=== PATIENT | female | born 1940 | race Caucasian/White ===

== ENCOUNTER 2019-05-31 10:34 | Outpatient (CLI) | payer MEDICARE, MEDICAID, SELFPAY ==
--- NOTE | ~2019-05-31 | DEXA_ITS ---
BMD(1) Young-Adult(2) Age-Matched(3) Region (g/cm2) T-score Z-score WHO Classification L1 0.883 -2.1 -1.5 Osteopenia L2 0.949 -2.2 -1.5 Osteopenia L3 0.947 -2.2 -1.5 Osteopenia L4 0.995 -1.7 -1.1 Osteopenia L1-L4 0.949 -2.0 -1.3 Osteopenia Trend: L1-L4 Change vs Change vs Measured Age BMD(1) Baseline Previous Date ([age]) (g/cm2) (%) (%) 05/31/2019 [age] 0[age]949 baseline - 1 - Statistically 68% of repeat scans fall within 1SD (+- 0.010 g/cm2 for AP Spine L1-L4) 2 - [place] (Combined NHANES (ages 20-30) / [employer] (ages 20-40)) AP Spine Reference Population (v112) 3 - Matched for Age, Weight (females 25-100 kg), Ethnic 11 - World Health Organization - Definition of Osteoporosis and Osteopenia for Women: Normal = T-score at or above -1.0 SD; Osteopenia = T-score between -1.0 and -2.5 SD; Osteoporosis = T-score at or below -2.5 SD; (WHO definitions only apply when a young healthy Women reference database is used to determine T-scores.) Printed: 05/31/2019 11:34:49 AM (13.60)76:3.00:22.22:27.0 0.00:11.46 0.60x1.05 26.8:%Fat=51.3% 0.00:0.00 0.00:0.00 Filename: [id number] Scan Mode: Thick;OneScan 83.0 [employer] [id number] BMD(1) Young-Adult(2) Age-Matched(3) Region (g/cm2) T-score Z-score WHO Classification Neck 0.652 -2.8 -1.4 Osteoporosis Total 0.675 -2.6 -1.6 Osteoporosis Hip [place] Side Length Comparison (mm) (Right = 108.7 mm) (Mean = 106.2 mm) Trend: Total Change vs Change vs Measured Age BMD(1) Baseline Previous Date (years) (g/cm2) (%) (%) 05/31/2019 78.6 0.675 baseline - 1 - Statistically 68% of repeat scans fall within 1SD (+- 0.012 g/cm2 for Right Femur Total) 2 - [place] (Combined NHANES (ages 20-30) / [employer] (ages 20-40)) Femur Reference Population (v112) 3 - Matched for Age, Weight (females 25-100 kg), Ethnic 11 - World Health Organization - Definition of Osteoporosis and Osteopenia for Women: Normal = T-score at or above -1.0 SD; Osteopenia = T-score between -1.0 and -2.5 SD; Osteoporosis = T-score at or below -2.5 SD; (WHO definitions only apply when a young healthy Women reference database is used to determine T-scores.) Printed: 05/31/2019 11:34:49 AM (13.60)76:3.00:50.00:12.0 0.00:15.84 0.60x1.05 21.5:%Fat=48.2% 0.00:0.00 0.00:0.00 Neck Angle (deg)= 60 Filename: [id number] Scan Mode: Standard 37.0 [employer] [id number] Dear Antonio Soriano, Dilan patient Celine Yip completed a BMD test on 05/31/2019 using the [employer] DXA System (analysis version: 13.60) manufactured by [employer]. The following summarizes the results of our evaluation. PATIENT BIOGRAPHICAL: Name: Celine Yip Date: 1940 Height: 64.0 in. Gender: Female Exam Date: 05/31/2019 Weight: 223.0 lbs. Indications: Caffeinated drinks, , Height Loss, History of Fracture (Adult), Hysterectomy, Menopause Fractures: Hip, Pelvis, Wrist Treatments: Calcium, Multivitamin, Omeprazole, Vitamin D ASSESSMENT: The BMD measured at Femur Neck is 0.652 g/cm2 with a T-score of -2.8. This patient is considered osteoporotic according to World Health Organization (WHO) criteria. F
[2019-05-31 10:52] LABS: Basophils Absolute Auto 0.03 K/mm3 (0.00-0.10); Basophils Percent Auto 0.7 % (0.0-1.0); Eosinophils Percent Auto 2.5 % (1.0-6.0); Immature Granulocyte Absolute 0.01 K/mm3 (0.00-0.00); Immature Granulocyte Percent A 0.2 % (0.0-0.0); Lymphocytes Absolute Auto 0.81 K/mm3 (1.10-4.50); Lymphocytes Percent Auto 19.9 % (18.0-42.0); Mean Corpuscular HGB Conc 31.3 g/dL (32.0-36.0); Mean Corpuscular Hemoglobin 32.5 pg (27.0-31.0); Mean Corpuscular Volume 103.9 fL (78.0-102.0); Monocytes Absolute Auto 0.38 K/mm3 (0.10-0.90); Monocytes Percent Auto 9.3 % (2.0-11.0); Neutrophils Absolute Auto 2.7 K/mm3 (1.7-7.2); Neutrophils Percent Auto 67.4 % (50.0-70.0); Platelet Count Result 161 K/mm3 (150-420); Red Blood Count 3.08 M/mm3 (4.20-5.40); Red Cell Distribution Width 14.1 % (11.6-14.4); White Blood Count 4.1 K/mm3 (4.8-10.8)
[2019-05-31 12:02] LABS: Alanine Aminotransferase 16 U/L (14-59); Albumin Level 3.3 g/dL (3.4-5.0); Alkaline Phosphatase 134 U/L (46-116); Anion Gap 16.1 mmol/L (7-16); Aspartate Amino Transferase 14 U/L (15-37); Bilirubin,Total 0.3 mg/dL (0.00-1.00); Blood Urea Nitrogen 18 mg/dL (7-18); Calcium 8.4 mg/dL (8.5-10.1); Carbon Dioxide 24 mmol/L (21-32); Chloride 110 mmol/L (98-108); Estimated Glomerular Filt Rate 45; Glucose 104 mg/dL (70-99); Osmolality Calculated 303 mOsm/kg (285-295); Potassium 4.1 mmol/L (3.5-5.1); Sodium 146 mmol/L (136-145); Total Protein 6.8 g/dL (6.4-8.2)
[2019-06-03 12:42] LABS: Parathyroid Intact 80 pg/mL (14-64)
== END 2019-05-31 10:35 | disposition home or self-care (01) ==
PROVIDERS: PCP Internal Medicine; Visit Provider Internal Medicine
DX: D64.9 Anemia, unspecified (principal); E83.51 Hypocalcemia; M81.0 Age-related osteoporosis without current pathological fracture
CPT/HCPCS: 36415; 77080; 80053; 83970; 85025

== ENCOUNTER 2021-01-29 10:59 | Outpatient (CLI) | payer MEDICARE, MEDICAID, SELFPAY ==
--- NOTE | 2021-01-29 11:06 | EST_ITS ---
Patient Info Name: Celine Yip Age: 80 years : 1940 Gender: Female Ht: 67 in Wt: 220 lbs BSA: 2.21 m2 Exam Date: 01/29/2021 12:16 PM Exam Location: [facility] Patient Status: Outpatient Admit Date: 01/29/2021 Staff Ordering Physician: Epifanio Bourne DO Attending Provider: Epifanio Bourne DO Exam Type: CA stress john w NM Summary 1. 1. Inconclusive lexiscan stress test for ischemic ST changes due to baseline LBBB. 2. 2. Stable hemodynamics throughout the test. 3. 3. Nuclear scan to follow and will be reported separately. Please correlate with it. 4. 4. Patient informed of the above results. Protocol: LEXISCAN Stress ECG Details Stage: REST Duration (min): 0 min : 53 sec HR (bpm): --- SBP (mmHg): 136 DBP (mmHg): 73 Stage: REST Duration (min): 32 min : 4 sec HR (bpm): 46 SBP (mmHg): 136 DBP (mmHg): 73 Stage: STAGE 1 Duration (min): 0 min : 9 sec HR (bpm): 53 SBP (mmHg): 136 DBP (mmHg): 73 Stage: RECOVERY Duration (min): 0 min : 50 sec HR (bpm): 37 SBP (mmHg): 136 DBP (mmHg): 73 Stage: RECOVERY Duration (min): 1 min : 50 sec HR (bpm): 83 SBP (mmHg): 112 DBP (mmHg): 54 Stage: RECOVERY Duration (min): 2 min : 50 sec HR (bpm): 84 SBP (mmHg): 121 DBP (mmHg): 56 Stage: RECOVERY Duration (min): 3 min : 50 sec HR (bpm): 53 SBP (mmHg): 121 DBP (mmHg): 53 Stage: RECOVERY Duration (min): 4 min : 50 sec HR (bpm): 82 SBP (mmHg): 119 DBP (mmHg): 54 Stage: RECOVERY Duration (min): 5 min : 50 sec HR (bpm): 42 SBP (mmHg): 115 DBP (mmHg): 56 Stage: RECOVERY Duration (min): 6 min : 3 sec HR (bpm): 82 SBP (mmHg): 115 DBP (mmHg): 56 Rest HR: 46 bpm Peak HR: 86 bpm Rest Sys BP: 136 mmHg Peak Sys BP: 121 mmHg Max Pred HR: 140 bpm % Max Pred HR: 61 % Target HR: 119 bpm Max RPP: 10,406 bpm*mmHg Termination Reason: Completed protocol Cardiac Symptoms: Shortness of breath Total Time: 0 min : 9 sec Rest Dukes BP: 73 mmHg Peak Dukes BP: 56 mmHg Total Dose: 0.4 mg Resting ECG Sinus or ectopic atrial bradycardia, LBBB, significant baseline artifact in I, II, III, avR, avL, avF, V1-v6. Stress ECG No ST changes. Arrhythmias None. Report Signatures
--- NOTE | 2021-01-29 17:22 | WPDCARIOSTRE ---
Nuclear Stress Test INDICATIONS Indications: SOB PROCEDURE Procedure Performed: Myocardial Perf Spect-Multi Procedure: Patient underwent a lexiscan stress test and was immediately injected with 32.4 mCi of cardiolyte. Multiple tomographic images were obtained. These are of good quality. There is evidence of large size, severe intensity mid to apical anterior perfusion defect that extends into anteroapical segment during stress imaging. A separate resting images were obtained after patient was injected with 10.6 mCi of cardiolyte. Multiple tomographic images were obtained. These are of good quality. There is evidence of large size, severe intensity mid to apical anterior perfusion defect that extends into anteroapical segment during rest imaging. CONCLUSION Conclusion: 1. Myocardial perfusion imaging demonstrating a fixed large size, severe intensity mid to apical anterior perfusion defect extending into anteroapical segment which is consistent with prior myocardial infarction or scar. 2. No evidence of reversible ischemia. 3. This is a non-gated study, therefore wall motion was not assessed, nor ejection fraction measured. 4. TID score 0.9 is normal.
== END 2021-01-29 11:00 | disposition home or self-care (01) ==
LOC: CHSIMG 11:01
PROVIDERS: PCP Internal Medicine; Visit Provider Internal Medicine Cardiovascular Disease
DX: R06.00 Dyspnea, unspecified (principal)
CPT/HCPCS: 78452; 93017; A9502; J2785

== ENCOUNTER 2021-03-02 10:48 | Outpatient (CLI) | payer MEDICARE, SELFPAY ==
[2021-03-02 11:40] LABS: Alanine Aminotransferase 13 U/L (14-59); Albumin Level 2.9 g/dL (3.4-5.0); Alkaline Phosphatase 125 U/L (46-116); Anion Gap 8 mmol/L (8-16); Aspartate Amino Transferase 10 U/L (15-37); Bilirubin,Total 0.4 mg/dL (0.00-1.00); Blood Urea Nitrogen 23 mg/dL (7-18); Calcium 8.2 mg/dL (8.5-10.1); Carbon Dioxide 26 mmol/L (21-32); Chloride 109 mmol/L (98-108); Cholesterol 136 mg/dL (0-200); Estimated Glomerular Filt Rate 49; Glucose 95 mg/dL (70-99); HDL Direct 49 mg/dL (40-60); LDL Cholesterol Calculated 73 mg/dL (<130); Osmolality Calculated 299 mOsm/kg (285-295); Potassium 4.5 mmol/L (3.5-5.1); Sodium 143 mmol/L (136-145); Total Protein 6.7 g/dL (6.4-8.2); Triglycerides 70 mg/dL (0-150)
== END 2021-03-02 10:49 | disposition home or self-care (01) ==
LOC: CHSLAB 10:50
PROVIDERS: PCP Internal Medicine; Visit Provider Internal Medicine Cardiovascular Disease
DX: I51.9 Heart disease, unspecified (principal)
CPT/HCPCS: 36415; 80053; 80061

== ENCOUNTER 2023-07-07 10:01 | Outpatient (CLI) | payer MEDICARE, MEDICAID, SELFPAY ==
--- NOTE | 2023-07-07 10:07 | ECHO_ITS ---
Patient Info Name: Celine Yip Age: 82 years : 1940 Gender: Female Ht: 67 in Wt: 180 lbs BSA: 1.98 m2 HR: 75 bpm BP: 135 / 90 mmHg Heart Rhythm: Sinus Rhythm Technical Quality: Good Exam Date: 07/07/2023 10:06 AM Exam Location: [facility] Patient Status: Outpatient Admit Date: 07/07/2023 Staff Ordering Physician: Epifanio Bourne DO Dental Internship: Hector Mcgee RDCS Attending Provider: Epifanio Bourne DO Referring Physician: Steffen UNDERWOOD; Exam Type: CA echo doppler color flow Study Info Indications - heart disease, unspecified Complete two-dimensional, color flow and Doppler transthoracic echocardiogram is performed. Summary 1. Complete two-dimensional, color flow and Doppler transthoracic echocardiogram is performed. 2. Left ventricular chamber dimension is normal. 3. Ventricular septum is sigmoid shaped. No resting LVOT obstruction. 4. Left ventricular systolic function is normal, estimated at 60-65%. 5. The left ventricular diastolic function is abnormal. 6. E/e' 12 is mildly elevated. 7. Left atrial chamber dimension is moderately enlarged. 8. Right atrial chamber dimension is mildly enlarged. 9. There is mild aortic valve sclerosis. 10. There is mild aortic valve regurgitation. 11. There is trace mitral valve regurgitation. 12. No pulmonary hypertension, estimated pulmonary arterial systolic pressure is 37 mmHg. Left Ventricle E/e' 12 is mildly elevated. Ventricular septum is sigmoid shaped. No resting LVOT obstruction. Left ventricular chamber dimension is normal. Left ventricular systolic function is normal, estimated at 60-65%. The left ventricular diastolic function is abnormal. Right Ventricle Right ventricular systolic function is normal and with normal TAPSE 3.7 cm. Right ventricular chamber dimension is normal. Left Atria Left atrial chamber dimension is moderately enlarged. Right Atria Right atrial chamber dimension is mildly enlarged. Aortic Valve The aortic valve is trileaflet. There is mild aortic valve sclerosis. There is no aortic valve stenosis. There is mild aortic valve regurgitation. Pulmonic Valve There is no pulmonic regurgitation. Mitral Valve There is no mitral valve stenosis. There is trace mitral valve regurgitation. Tricuspid Valve There is no tricuspid valve regurgitation. No pulmonary hypertension, estimated pulmonary arterial systolic pressure is 37 mmHg. Pericardium/Pleural There is no pericardial effusion. Inferior Vena Cava Normal inferior vena cava with >50% collapse upon inspiration consistent with normal right atrial pressure, 5 mmHg. Aorta The aortic root size at the sinus of Valsalva is normal. Left Ventricular Outflow Tract Name Value Normal LVOT 2D LVOT Diameter 2.1 cm LVOT Doppler LVOT Peak Velocity 110 cm/s LVOT Peak Gradient 5 mmHg LVOT Mean Gradient 4 mmHg LVOT VTI 37 cm LVOT VTI/AV VTI Ratio 0.8 LVOT Stroke Volume 131 ml Pulmonic Valve Name
== END 2023-07-07 10:02 | disposition home or self-care (01) ==
LOC: CHSIMG 10:02
PROVIDERS: PCP Internal Medicine; Visit Provider Internal Medicine Cardiovascular Disease
DX: I51.9 Heart disease, unspecified (principal); I35.8 Other nonrheumatic aortic valve disorders
CPT/HCPCS: 93306

== ENCOUNTER 2024-06-10 11:10 | Outpatient (CLI) | payer MEDICARE, SELFPAY ==
[2024-06-10 11:59] LABS: Alanine Aminotransferase 17 U/L (14-59); Alkaline Phosphatase 141 U/L (46-116); Anion Gap 8 mmol/L (4-12); Aspartate Amino Transferase 15 U/L (15-37); Bilirubin,Total 0.4 mg/dL (0.00-1.00); Blood Urea Nitrogen 20 mg/dL (7-18); Calcium 8.6 mg/dL (8.5-10.1); Carbon Dioxide 30 mmol/L (21-32); Chloride 105 mmol/L (98-108); Cholesterol 122 mg/dL (0-200); Estimated Glomerular Filt Rate 46; Glucose 102 mg/dL (70-99); HDL Direct 51 mg/dL (40-60); LDL Cholesterol Calculated 55 mg/dL (<130); Osmolality Calculated 298 mOsm/kg (285-295); Potassium 4.9 mmol/L (3.5-5.1); Sodium 143 mmol/L (136-145); Total Protein 6.9 g/dL (6.4-8.2); Triglycerides 81 mg/dL (0-150)
== END 2024-06-10 11:11 | disposition home or self-care (01) ==
LOC: CHSLAB 11:11
PROVIDERS: PCP Internal Medicine; Visit Provider Internal Medicine Cardiovascular Disease
DX: E78.5 Hyperlipidemia, unspecified (principal)
CPT/HCPCS: 36415; 80053; 80061

== ENCOUNTER 2024-07-15 08:33 | Outpatient (CLI) | payer MEDICARE, MEDICAID, SELFPAY ==
--- NOTE | ~2024-07-15 | XR_ITS ---
Clinical Indication: Cough PA and lateral views of the chest: Comparison: None Findings: The lungs are clear, without evidence of focal consolidation or pleural effusion. Suspected COPD. Cardiomediastinal silhouette is within normal limits. Neurostimulator devices are present. Bon es and soft tissues are unremarkable. Impression: Clear lungs. COPD. Neurostimulator devices. Reviewed, dictated and finalized at location . Impression: Clear lungs. COPD. Neurostimulator devices.
[2024-07-15 09:13] LABS: Basophils Absolute Auto 0.06 K/mm3 (0.00-0.10); Basophils Percent Auto 0.8 % (0.0-1.0); Eosinophils Absolute Auto 0.16 K/mm3 (0.02-0.50); Eosinophils Percent Auto 2.1 % (1.0-6.0); Hematocrit 28.6 % (35.0-42.0); Hemoglobin 8.4 g/dL (11.7-13.8); Immature Granulocyte Absolute 0.03 K/mm3 (0.00-0.00); Immature Granulocyte Percent A 0.4 % (0.0-0.0); Lymphocytes Absolute Auto 1.18 K/mm3 (1.10-4.50); Lymphocytes Percent Auto 15.7 % (18.0-42.0); Mean Corpuscular HGB Conc 29.4 g/dL (32-36); Mean Corpuscular Hemoglobin 27.8 pg (27.0-31.0); Mean Corpuscular Volume 94.7 fL (78.0-102.0); Mean Platelet Volume 9.8 fl (9.2-11.8); Monocytes Absolute Auto 0.43 K/mm3 (0.10-0.90); Monocytes Percent Auto 5.7 % (2.0-11.0); Neutrophils Absolute Auto 5.67 K/mm3 (1.70-7.20); Neutrophils Percent Auto 75.3 % (50.0-70.0); Platelet Count Result 316 K/mm3 (150-420); Red Blood Count 3.02 M/mm3 (4.20-5.40); Red Cell Distribution Width 12.8 % (11.6-14.4); White Blood Count 7.5 K/mm3 (4.8-10.8)
[2024-07-15 10:06] LABS: Erythrocyte Sedimentation Rate 63 mm/hr (0-20)
[2024-07-15 12:53] LABS: Lactate Dehydrogenase 133 U/L (81-234)
[2024-07-15 12:54] LABS: Vitamin B12 > 2000 pg/mL (193-986)
[2024-07-16 15:33] LABS: Red Blood Cell Folate 778 ng/mL RBC (>280)
[2024-07-19 13:58] LABS: Soluble Transferrin Receptor 2.56 mg/L (0.76-1.76)
[2024-07-19 17:09] LABS: Anti Cyclic Citrullinated Pept <16 UNITS
[2024-07-20 05:09] LABS: Methylmalonic Acid 215 nmol/L (85-423)
== END 2024-07-15 08:34 | disposition home or self-care (01) ==
PROVIDERS: PCP Internal Medicine; Visit Provider Internal Medicine
DX: D64.9 Anemia, unspecified (principal); R05.9 Cough, unspecified; J44.9 Chronic obstructive pulmonary disease, unspecified; Z96.82 Presence of neurostimulator
CPT/HCPCS: 36415; 71046; 82607; 82747; 83615; 83921; 84238; 85025; 85652; 86038; 86200

== ENCOUNTER 2024-10-07 11:59 | Outpatient (CLI) | payer MEDICARE, MEDICAID, SELFPAY ==
[2024-10-07 12:40] LABS: Add Urine Microscopic? YES; Bilirubin Urine 2+ (Negative); Blood Urine Trace-intact (Negative); Color Urine Dark Yellow (Yellow); Glucose Urine UA Negative (Negative); Ketones Urine Trace (Negative); Leukocyte Esterase Ur 3+ (Negative); Nitrate Urine Negative (Negative); Protein Urine 2+ (Negative)
[2024-10-07 12:41] LABS: Hematocrit 28.8 % (35.0-42.0); Hemoglobin 8.8 g/dL (11.7-13.8); Mean Corpuscular HGB Conc 30.6 g/dL (32-36); Mean Corpuscular Hemoglobin 30.7 pg (27.0-31.0); Mean Corpuscular Volume 100.3 fL (78.0-102.0); Mean Platelet Volume 9.9 fl (9.2-11.8); Platelet Count Result 300 K/mm3 (150-420); Red Blood Count 2.87 M/mm3 (4.20-5.40); Red Cell Distribution Width 14.9 % (11.6-14.4)
[2024-10-07 12:53] LABS: Appearance Urine Cloudy (Clear); Bacteria Urine 2+ /hpf; RBC Urine 0-2 /hpf (0-2); Squamous Epithelial Cell Urine Rare /hpf (Few); WBC Urine >100 /hpf (0-3)
[2024-10-07 12:55] LABS: Alanine Aminotransferase 62 U/L (6-35); Albumin Level 2.4 g/dL (3.5-5.1); Alkaline Phosphatase > 1000 U/L (38-126); Amylase 77 U/L (30-110); Anion Gap 3 mmol/L (4-12); Aspartate Amino Transferase 126 U/L (14-36); Bilirubin,Total 2.2 mg/dL (0.2-1.3); Blood Urea Nitrogen 16 mg/dL (7-17); CRP > 9.0 mg/dL (<1.0); Calcium 7.7 mg/dL (8.4-10.2); Carbon Dioxide 25 mmol/L (22-30); Chloride 108 mmol/L (98-107); Estimated Glomerular Filt Rate > 60; Glucose 105 mg/dL (65-110); Lipase 74 U/L (23-300); Osmolality Calculated 283 mOsm/kg (285-295); Potassium 4.2 mmol/L (3.4-5.0); Sodium 136 mmol/L (137-145)
[2024-10-07 16:02] LABS: NT Pro B Type Natriuretic Pept 6060 pg/mL (19.9-100)
[2024-10-08 17:04] LABS: Carcinoembryonic Antigen 5.1 ng/mL
[2024-10-09 01:29] LABS: CA 19-9 287 U/mL (<34)
== END 2024-10-07 12:00 | disposition home or self-care (01) ==
PROVIDERS: PCP Internal Medicine; Visit Provider Internal Medicine
DX: C23 Malignant neoplasm of gallbladder (principal); D64.9 Anemia, unspecified; R06.00 Dyspnea, unspecified; R79.89 Other specified abnormal findings of blood chemistry
CPT/HCPCS: 36415; 80053; 81001; 82150; 82378; 83690; 83880; 84238; 85027; 86140; 86301